=== PATIENT | male | born 1995 ===

== ENCOUNTER → 2024-01-11 | Outpatient (CLI) | payer OTHER | LOC: LAB 07:33 → LAB SHORT 07:33 | DX: B35.1 Tinea unguium (principal); L60.2 Onychogryphosis | CPT/HCPCS: 88305; 88312 ==

== ENCOUNTER → 2024-01-11 | Outpatient (CLI) | payer OTHER | LOC: LAB 16:00 → LAB SHORT 16:00 | DX: B35.2 Tinea manuum (principal) | CPT/HCPCS: 87220 ==